=== PATIENT | male | born 1965 | race Caucasian/White ===

== ENCOUNTER → 2016-06-30 | Outpatient (CLI) | payer OTHER | LOC: OD 14:07 | PROVIDERS: ATTEND Physician Assistant | DX: R22.9 Localized swelling, mass and lump, unspecified (principal); M54.2 Cervicalgia | CPT/HCPCS: 71020; 72050 ==

== ENCOUNTER 2016-12-15 14:16 | Emergency (ER) | payer OTHER ==
--- NOTE | 2016-12-15 15:34 | RADIOLOGY REPORT (SQ) ---
EXAM DESCRIPTION: FOOT RIGHT COMPLETE COMPLETED DATE/TIME: 12/15/2016 3:17 pm REASON FOR STUDY: pain COMPARISON: None. NUMBER OF VIEWS: Three views. TECHNIQUE: AP, lateral and oblique radiographic images acquired of the right foot. LIMITATIONS: None. FINDINGS: MINERALIZATION: Normal. BONES: No acute fracture or dislocation. No worrisome bone lesions. Small calcaneal spur at the ins ertion of the plantar aponeurosis. Small bone island in the distal calcaneus. JOINTS: No effusions. SOFT TISSUES: No soft tissue swelling. No foreign body. Mild arterial calcification. OTHER: No other significant finding. IMPRESSION: Small calcaneal spur otherwise negative right foot. TECHNICAL DOCUMENTATION: JOB ID: [id number] [employer]- All Rights Reserved
[2016-12-15] MEDS ORDERED: OXYCODONE-ACETAMINOPHEN 5-325 MG TABLET PO ONE (15:43)
--- NOTE | 2016-12-15 15:47 | ER Document Report ---
HPI - HPI Patient complains to provider of: Foot injury Onset: Other - 5 Days ago Onset/Duration: Persistent Quality of pain: Achy Pain Level: 4 Context: Patient states that he accidentally kicked something while walking in the house 5 days ago and injured his right foot. Patient complains of persistent pain to the plantar surface of the right foot Associated Symptoms: Other - Foot pain Exacerbated by: Standing, Movement, Walking Relieved by: Denies Similar symptoms previously: No Recently seen / treated by doctor: No - ROS ROS below otherwise negative: Yes Systems Reviewed and Negative: Yes All other systems reviewed and negative - CONSTITUTIONAL Constitutional: DENIES: Fever, Chills - GASTROINTESTINAL Gastrointestinal: DENIES: Nausea - REPRODUCTIVE Reproductive: DENIES: : - MUSCULOSKELETAL Musculoskeletal: REPORTS: Extremity pain - DERM Skin Color: Normal Skin Problems: None Past Medical History - General Information source: Patient - Social History Smoking Status: Never Smoker Frequency of alcohol use: None Drug Abuse: None Occupation: none Lives with: Family Family History: CAD Patient has suicidal ideation: No Patient has homicidal ideation: No - Past Medical History Cardiac Medical History: Reports: Hx Heart Attack, Hx Hypercholesterolemia, Hx Hypertension Renal/ Medical History: Denies: Hx Peritoneal Dialysis GI Medical History: Reports: Hx Gastroesophageal Reflux Disease Past Surgical History: Reports: Hx Abdominal Surgery - abominal/groin for blockage, Hx Orthopedic Surgery - bilat knees - Immunizations Immunizations up to date: No Hx Diphtheria, Pertussis, Tetanus Vaccination: Yes Hx Pneumococcal Vaccination: 02/10/15 Vertical Provider Document - CONSTITUTIONAL Agree With Documented VS: Yes Exam Limitations: No Limitations General Appearance: WD/WN, No Apparent Distress - INFECTION CONTROL TRAVEL OUTSIDE OF THE [place] IN LAST 30 DAYS: No - HEENT HEENT: Atraumatic - NECK Neck: Normal Inspection - RESPIRATORY Respiratory: No Respiratory Distress O2 Sat by Pulse Oximetry: 96 - CARDIOVASCULAR Pulses: Normal: Radial - MUSCULOSKELETAL/EXTREMETIES Musculoskeletal/Extremeties: MAEW, Tender - Right foot tenderness to plantar surface of distal right third through fifth metatarsal, no obvious edema, no deformity - NEURO Level of Consciousness: Awake, Alert, Appropriate Motor/Sensory: No Motor Deficit - DERM Integumentary: Warm, Dry, No Rash Course - Vital Signs Vital signs: Temp Pulse Resp BP Pulse Ox 98.4 F 79 18 132/88 H 96 12/15/16 14:23 12/15/16 14:23 12/15/16 14:23 12/15/16 14:23 12/15/16 14:23 - Diagnostic Test Radiology reviewed: Image reviewed, Reports reviewed Procedures - Immobilization Right Foot Pre-Proc Neuro Vasc Exam: Normal Immobilizer type: Willian wrap, Post-op shoe Performed by: PCT Post-Proc Neuro Vasc Exam: Normal Alignment checked and good: Yes Discharge - Discharge Clinical Impression: Right foot sprain Qualifiers: Encounter type: initial encounter Qualified Code(s): S93.601A - Unspecified sprain of right foot, initial encounter Condition: Stable Disposition: HOME, SELF-CARE Instructions: Sprain ([facility]), Oral Narcotic Medication ([facility]), Ice Packs ([facility]), Use of Crutches ([facility]), Post-Op Shoe ([facility]) Additional Instructions: Return immediately for any new or worsening symptoms Followup with your primary care provider, call tomorrow to make a followup appointment Weightbearing as tolerated Follow-up with orthopedic doctor for any continued pain or problems Prescriptions: Oxycodone HCl/Acetaminophen [Percocet 5-325 mg Tablet] 1 tab PO ASDIR PRN #12 tablet PRN Reason: Referrals: JOSE SCHROEDER PA-C [Primary Care Provider] - Follow up as needed [facility] [Provider Group] - Follow up as needed
[2016-12-15 16:14] VITALS: BP 130/82
== END 2016-12-15 16:10 | disposition home or self-care (01) ==
LOC: ER 14:16
DX: S93.601A Unspecified sprain of right foot, initial encounter (principal); W22.8XXA Striking against or struck by other objects, initial encounter
CPT/HCPCS: 99283

== ENCOUNTER 2017-10-16 13:48 | Emergency (ER) | payer MEDICARE, OTHER ==
--- NOTE | 2017-10-16 14:08 | EKG REPORT ---
SEVERITY:- NORMAL ECG - SINUS RHYTHM : Confirmed by: Ramesh Mcneil MD 16-Oct-2017 14:08:03
[2017-10-16] MEDS ORDERED: ASPIRIN 81 MG TABLET, CHEWABLE PO ONE (14:47)
[2017-10-16 14:55] LABS: ABSOLUTE BASOPHILS # (AUTO) 0.1 10^3/uL (0.0-0.2); ABSOLUTE EOSINOPHILS # (AUTO) 0.5 10^3/uL (0.0-0.6); ABSOLUTE LYMPHOCYTES (AUTO) 2.4 10^3/uL (0.5-4.7); ABSOLUTE MONOCYTES (AUTO) 1.2 10^3/uL (0.1-1.4); BASOPHILS % (AUTO) 0.8 % (0-2); EOSINOPHILS % (AUTO) 5.6 % (0-6); HEMATOCRIT 42.2 % (37.9-51.0); HEMOGLOBIN 14.3 g/dL (13.5-17.0); LYMPHOCYTES % (AUTO) 29.8 % (13-45); MEAN CORPUSCULAR HEMOGLOBIN 29.9 pg (27.0-33.4); MEAN CORPUSCULAR HGB CONC 33.9 g/dL (32.0-36.0); MEAN CORPUSCULAR VOLUME 88 fl (80-97); MONOCYTES % (AUTO) 14.8 % (3-13); PLATELET COUNT 242 10^3/uL (150-450); RED BLOOD COUNT 4.78 10^6/uL (4.35-5.55); RED CELL DISTRIBUTION WIDTH 14.3 % (11.5-14.0); TOTAL CELLS COUNTED % (AUTO) 100 %; WHITE BLOOD COUNT 8.1 10^3/uL (4.0-10.5)
[2017-10-16] MEDS ORDERED: METHOCARBAMOL 750 MG TABLET PO ONE (15:02)
[2017-10-16] MEDS ORDERED: KETOROLAC TROMETHAMINE INJ/PF 30 MG/1 ML SDV IV ONE (15:02)
--- NOTE | 2017-10-16 15:02 | ER Document Report ---
ED General - General Chief Complaint: Chest Tightness Stated Complaint: CHEST PAIN Time Seen by Provider: 10/16/17 14:35 Notes: Patient is a 51-year-old male presents emergency department the chief complaint of shoulder and chest pain. Patient states that the shoulder pain for 6 weeks. He patient states now that he feels like he is having pain in his chest describes it as sharp pain that radiates into his neck and along into his chest on the left lateral wall. He states that it is positional with worse with certain movements. He describes his neck is stiff on the left side into his left shoulder. States that he has had an MRI and diagnosed with arthritis of the cervical spine. Is supposed to follow-up with orthopedics regarding this. Patient's past medical history is significant for a stress-induced AK in 2015. Patient states that he had a coronary cath in 2014 with no stents placed due to an absence of blockages significant or requiring stent placement, patient states that he takes a daily aspirin but is not on any blood thinners. Patient states that he also has associated congestive heart failure with ejection fraction of 55%. Patient denies any weight gain, orthopnea, dyspnea. Patient has a history of hypertension, hyperlipidemia, prediabetes on metformin. Patient denies any recent travel, additional hormone intake, recent surgery. Patient is a non-smoker denies any alcohol or drug use. Primary care is with Jose velazquez. Cardiology is with ej TRAVEL OUTSIDE OF THE [place] IN LAST 30 DAYS: No - Related Data Allergies/Adverse Reactions: No Known Allergies Allergy (Verified 12/15/16 14:19) Past Medical History - Social History Smoking Status: Never Smoker Chew tobacco use (# tins/day): No Frequency of alcohol use: None Drug Abuse: None Family History: CAD Patient has suicidal ideation: No Patient has homicidal ideation: No - Past Medical History Cardiac Medical History: Reports: Hx Heart Attack, Hx Hypercholesterolemia, Hx Hypertension Endocrine Medical History: Reports: Hx Diabetes Mellitus Type 2 Renal/ Medical History: Denies: Hx Peritoneal Dialysis GI Medical History: Reports: Hx Gastroesophageal Reflux Disease Past Surgical History: Reports: Hx Abdominal Surgery - abominal/groin for blockage, Hx Orthopedic Surgery - bilat knees - Immunizations Immunizations up to date: No Hx Diphtheria, Pertussis, Tetanus Vaccination: Yes Hx Pneumococcal Vaccination: 02/10/15 Review of Systems - Review of Systems Constitutional: No symptoms reported Cardiovascular: See HPI Respiratory: No symptoms reported Gastrointestinal: No symptoms reported Musculoskeletal: See HPI Neurological/Psychological: No symptoms reported -: Yes All other systems reviewed and negative Physical Exam - Vital signs Vitals: Temp Pulse Resp BP Pulse Ox 98.6 F 69 20 146/92 H 96 10/16/17 14:07 10/16/17 14:07 10/16/17 14:07 10/16/17 14:07 10/16/17 14:07 - Notes Notes: Patient PHYSICAL EXAM GENERAL: Alert, interacts well. HEAD: Normocephalic, atraumatic. EYES: Pupils equal, round, and reactive to light. Extraocular movements intact. ENT: Oral mucosa moist, tongue midline. NECK: Full range of motion. Supple. Trachea midline. LUNGS: Clear to auscultation bilaterally, no wheezes, rales, or rhonchi. No respiratory distress. HEART: Tenderness along the left pectoral muscle and pain reproducible palpation. Regular rate and rhythm. No murmurs, gallops, or rubs. ABDOMEN: Soft, nondistended, nontender. No guarding, rebound, or rigidity.. Bowel sounds present in all 4 quadrants. EXTREMITIES: Tenderness and tension noted in the left trapezius and left shoulder. Worse with range of motion. Pain reproducible palpation. Moves all 4 extremities spontaneously. No edema, radial and dorsalis pedis pulses 2/4 bilaterally. No cyanosis. NEUROLOGICAL: Alert and oriented x4. Normal speech. PSYCH: Normal affect, normal mood. SKIN: Warm, dry, normal turgor. No rashes or lesions noted. Course - Re-evaluation Re-evalutation: 10/16/17 16:13 Patient is a 51-year-old male presents emergency department the chief complaint of shoulder and chest pain. A chest pain care set was ordered For triage protocol. Patient's physical exam is consistent with musculoskeletal cause. With that being said his troponin was at 0.024. This has been at this level in the past. Could be due to underlying congestive heart failure but given patient 's history we will trend for another troponin. EKG without any evidence of ST changes concerning for ischemia. Patient is chest pain free at this time unless re-creates his musculoskeletal discomfort with positioning 10/16/17 18:59 patient's repeat troponin is also negative. Patient's has been chest pain-free in the emergency department with no results noted on monitoring. Patient agreeable with discharge home to follow-up with primary care. Given strict return precautions and stable for discharge home. - Vital Signs Vital signs: Temp Pulse Resp BP Pulse Ox 98.6 F 69 13 126/72 H 97 10/16/17 14:07 10/16/17 14:07 10/16/17 15:01 10/16/17 15:01 10/16/17 15:01 - Laboratory Result Diagrams: 10/16/17 14:30 10/16/17 14:30 Laboratory results interpreted by me: 10/16/17 10/16/17 14:30 14:30 RDW 14.3 H Monocytes % 14.8 H Sodium 149.5 H Chloride 110 H - Diagnostic Test Radiology reviewed: Image reviewed, Reports reviewed - EKG Interpretation by Me EKG shows normal: Sinus rhythm Rate: Normal Rhythm: NSR When compared to previous EKG there are: No significant change Discharge - Discharge Clinical Impression: Chest wall pain Shoulder pain Qualifiers: Chronicity: acute Laterality: left Qualified Code(s): M25.512 - Pain in left shoulder Condition: Good Disposition: HOME, SELF-CARE Instructions: Chest Wall Pain ([facility]), Exercise Program for the Shoulder ([facility]), Neck Injury (Cervical Strain) ([facility]), Warm Packs ([facility]) Prescriptions: Methocarbamol [Robaxin 750 mg Tablet] 750 mg PO ASDIR PRN #40 tablet PRN Reason: Referrals: JOSE VELAZQUEZ PA-C [Primary Care Provider] - Follow up in 3-5 days
--- NOTE | 2017-10-16 15:11 | RADIOLOGY REPORT (SQ) ---
EXAM DESCRIPTION: CHEST SINGLE VIEW COMPLETED DATE/TIME: 10/16/2017 3:04 pm REASON FOR STUDY: chest pain COMPARISON: 06/30/2016 EXAM PARAMETERS: NUMBER OF VIEWS: One view. TECHNIQUE: Single frontal radiographic view of the chest acquired. RADIATION DOSE: NA LIMITATIONS: None. FINDINGS: LUNGS AND PLEURA: No opacities, masses or pneumothorax. No pleural effusion. MEDIASTINUM AND HILAR STRUCTURES: No masses. Contour normal. HEART AND VASCULAR STRUCTURES: Stable heart size. Normal vasculature. BONES: No acute findings. HARDWARE: None in the chest. OTHER: No other significant finding. IMPRESSION: NO ACUTE RADIOGRAPHIC FINDING IN THE CHEST. TECHNICAL DOCUMENTATION: JOB ID: [id number] [employer]- All Rights Reserved Reading location - IP/workstation name: [email or web address]
[2017-10-16 15:28] LABS: ALANINE AMINOTRANSFERASE 71 U/L (21-72); ALBUMIN 4.1 g/dL (3.5-5.0); ALKALINE PHOSPHATASE 84 U/L (38-126); ANION GAP 14 (5-19); ASPARTATE AMINO TRANSFERASE 43 U/L (17-59); BILIRUBIN,DIRECT 0.4 mg/dL (0.0-0.4); BILIRUBIN,TOTAL 0.4 mg/dL (0.2-1.3); BLOOD UREA NITROGEN 19 mg/dL (7-20); CALCIUM 9.5 mg/dL (8.4-10.2); CARBON DIOXIDE 26 mmol/L (22-30); CHLORIDE 110 mmol/L (98-107); CREATINE KINASE 135 U/L (55-170); GLUCOSE 87 mg/dL (75-110); POTASSIUM 4.2 mmol/L (3.6-5.0); SODIUM 149.5 mmol/L (137-145); TOTAL PROTEIN 7.4 g/dL (6.3-8.2)
[2017-10-16 15:38] LABS: TROPONIN I 0.026 ng/mL
[2017-10-16 15:40] LABS: CREATINE KINASE MB 1.09 ng/mL (<4.55)
[2017-10-16 20:27] VITALS: BP 104/63
== END 2017-10-16 20:27 | disposition home or self-care (01) ==
LOC: ER 13:48
DX: R07.89 Other chest pain (principal); I11.0 Hypertensive heart disease with heart failure; I50.9 Heart failure, unspecified; E11.9 Type 2 diabetes mellitus without complications; M47.9 Spondylosis, unspecified; M25.512 Pain in left shoulder; M43.6 Torticollis; I25.2 Old myocardial infarction; Z82.49 Family history of ischemic heart disease and other diseases of the circulatory system
CPT/HCPCS: 93005; 99285; 96374; 36415; 82553; 82550; 85025; 80053; 84484; 83880; 71045; 93010; A9270 ×2; J1885; J3490

== ENCOUNTER 2019-01-31 20:42 | Emergency (ER) | payer MEDICARE, OTHER ==
[2019-01-31] MEDS ORDERED: ASPIRIN 81 MG TABLET, CHEWABLE PO ONE (20:54)
--- NOTE | 2019-01-31 22:12 | RADIOLOGY REPORT (SQ) ---
EXAM DESCRIPTION: CLINICAL HISTORY: 53 years Male, cp COMPARISON: 06/30/2016.. FINDINGS: Cardiomediastinal silhouette is not acutely enlarged. There is minimal prominence of the main pulmonary artery segment which was seen previously. Current study demonstrates minimal prominence of interstitial markings in the lung bases. IMPRESSION: Very minimal prominence of interstitial markings in the lung bases. No overt acute findings.
[2019-01-31 22:31] LABS: ABSOLUTE BASOPHILS # (AUTO) 0.1 10^3/uL (0.0-0.2); ABSOLUTE EOSINOPHILS # (AUTO) 0.6 10^3/uL (0.0-0.6); ABSOLUTE LYMPHOCYTES (AUTO) 2.9 10^3/uL (0.5-4.7); ABSOLUTE NEUT (AUTO) 5.3 10^3/uL (1.7-8.2); EOSINOPHILS % (AUTO) 5.8 % (0-6); HEMATOCRIT 43.2 % (37.9-51.0); HEMOGLOBIN 14.8 g/dL (13.5-17.0); LYMPHOCYTES % (AUTO) 29.3 % (13-45); MEAN CORPUSCULAR HEMOGLOBIN 30.3 pg (27.0-33.4); MEAN CORPUSCULAR HGB CONC 34.3 g/dL (32.0-36.0); MEAN CORPUSCULAR VOLUME 88 fl (80-97); MONOCYTES % (AUTO) 10.5 % (3-13); PLATELET COUNT 275 10^3/uL (150-450); RED BLOOD COUNT 4.89 10^6/uL (4.35-5.55); RED CELL DISTRIBUTION WIDTH 14.1 % (11.5-14.0); SEGMENTED NEUTROPHILS % (AUTO) 53.4 % (42-78); TOTAL CELLS COUNTED % (AUTO) 100 %
[2019-01-31 22:41] LABS: INTERNATIONAL RATION (INR) 0.96; PROTHROMBIN TIME 12.8 SEC (11.4-15.4)
[2019-01-31 22:45] LABS: ALBUMIN 4.2 g/dL (3.5-5.0); ALKALINE PHOSPHATASE 92 U/L (38-126); ANION GAP 11 (5-19); ASPARTATE AMINO TRANSFERASE 24 U/L (17-59); BILIRUBIN,DIRECT 0.2 mg/dL (0.0-0.4); BILIRUBIN,TOTAL 0.4 mg/dL (0.2-1.3); BLOOD UREA NITROGEN 18 mg/dL (7-20); CALCIUM 9.9 mg/dL (8.4-10.2); CARBON DIOXIDE 30 mmol/L (22-30); CHLORIDE 101 mmol/L (98-107); CREATINE KINASE 58 U/L (55-170); GLUCOSE 127 mg/dL (75-110); POTASSIUM 3.8 mmol/L (3.6-5.0); TOTAL PROTEIN 7.5 g/dL (6.3-8.2)
[2019-01-31 22:57] LABS: TROPONIN I < 0.012 ng/mL
[2019-01-31] MEDS ORDERED: ACETAMINOPHEN 325 MG TABLET PO ONE (23:53)
[2019-02-01] MEDS ORDERED: ONDANSETRON HCL INJ/PF 4 MG/2 ML SDV IV ONE (00:03)
[2019-02-01] MEDS ORDERED: IPRATROPIUM/ALBUTEROL 0.5-2.5 MG/3 ML AMPUL NEB ONE (00:03)
[2019-02-01] MEDS ORDERED: MORPHINE SULFATE 10 MG/ML INJ IV ONE (00:03)
--- NOTE | 2019-02-01 00:05 | ER Document Report ---
ED General - General Chief Complaint: Chest Pain Stated Complaint: CHEST PAIN Time Seen by Provider: 01/31/19 23:24 Primary Care Provider: JOSE SCHROEDER PA-C [Primary Care Provider] - Follow up in 3-5 days Mode of Arrival: Ambulatory Information source: Patient, Relative Notes: 53-year-old male with coronary artery disease, hypertension, hyperlipidemia, type 2 diabetes, reflux presents with complaint of chest pain, shortness of breath and headache. Patient states chest pain started 1 day prior to arrival while at rest. Pain is located substernally and described as a constant pressure like pain. Shortness of breath is intermittent, worse with activity and when laying flat. Patient does have a history of JOSE FRANCISCO and is supposed to be using a CPAP machine but states he has not been using it as he should. Patient denies any recent surgery, leg swelling, history of PE, DVT, history of cancer. Patient does report that he had been camping for several weeks but denies any tick bites, bug bites, rashes, fever, chills, nausea, vomiting. TRAVEL OUTSIDE OF THE [place] IN LAST 30 DAYS: No - HPI Onset: Yesterday Onset/Duration: Gradual, Persistent Quality of pain: Pressure Severity: Moderate Pain Level: 2 Associated symptoms: Body/muscle aches, Chest pain, Earache, Headache, Nausea, Shortness of breath. denies: Nonproductive cough, Productive cough, Hurts to breath, Leg swelling, Vomiting, Sweating, Weakness Exacerbated by: Movement, Walking Relieved by: Remaining still Similar symptoms previously: Yes Recently seen / treated by doctor: No - Related Data Allergies/Adverse Reactions: No Known Allergies Allergy (Verified 12/15/16 14:19) Past Medical History - General Information source: Patient - Social History Smoking Status: Never Smoker Frequency of alcohol use: Rare Drug Abuse: None Lives with: Family Family History: CAD Patient has suicidal ideation: No Patient has homicidal ideation: No - Past Medical History Cardiac Medical History: Reports: Hx Heart Attack, Hx Hypercholesterolemia, Hx Hypertension Endocrine Medical History: Reports: Hx Diabetes Mellitus Type 2 Renal/ Medical History: Denies: Hx Peritoneal Dialysis GI Medical History: Reports: Hx Gastroesophageal Reflux Disease Past Surgical History: Reports: Hx Abdominal Surgery - abominal/groin for blockage, Hx Orthopedic Surgery - bilat knees - Immunizations Immunizations up to date: No Hx Diphtheria, Pertussis, Tetanus Vaccination: Yes Hx Pneumococcal Vaccination: 02/10/15 Review of Systems - Review of Systems Constitutional: Malaise EENT: Eye pain. denies: Throat pain, Difficulty swallowing Cardiovascular: Chest pain, Dyspnea, Dizziness. denies: Palpitations, Edema Respiratory: Short of breath. denies: Cough, Wheezing Gastrointestinal: Nausea. denies: Abdominal pain, Vomiting, Poor appetite, Poor fluid intake Genitourinary: denies: Dysuria, Flank pain Male Genitourinary: No symptoms reported Musculoskeletal: denies: Back pain, Muscle stiffness, Neck pain Skin: denies: Lesions, Rash Hematologic/Lymphatic: denies: Easy bleeding, Easy bruising Neurological/Psychological: Headaches -: Yes All other systems reviewed and negative Physical Exam - Vital signs Vitals: Temp Pulse Resp BP Pulse Ox 97.6 F 91 20 203/109 H 98 01/31/19 21:01 01/31/19 21:01 01/31/19 21:01 01/31/19 21:01 01/31/19 21:01 - Notes Notes: PHYSICAL EXAMINATION: GENERAL: Well-appearing, well-nourished and in no acute distress. HEAD: Atraumatic, normocephalic. EYES: Pupils equal round and reactive to light, extraocular movements intact, sclera anicteric, conjunctiva are normal. ENT: Nares patent, oropharynx clear without exudates. Moist mucous membranes. NECK: Normal range of motion, supple without lymphadenopathy LUNGS: Breath sounds clear to auscultation bilaterally and equal. No wheezes rales or rhonchi. HEART: Regular rate and rhythm without murmurs ABDOMEN: Soft, nontender, nondistended abdomen. No guarding, no rebound. No masses appreciated. Musculoskeletal: Normal range of motion, no pitting or edema. No cyanosis. No swelling of the lower extremities, calves nontender, not erythema. NEUROLOGICAL: Cranial nerves grossly intact. Normal speech, normal gait. Normal sensory, motor exams PSYCH: Normal mood, normal affect. SKIN: Warm, Dry, normal turgor, no rashes or lesions noted. Course - Re-evaluation Re-evalutation: 02/01/19 00:30 Laboratory 01/31/19 01/31/19 01/31/19 22:01 22: 22:01 WBC 10.0 RBC 4.89 Hgb 14.8 Hct 43.2 MCV 88 MCH 30.3 MCHC 34.3 RDW 14.1 H Plt Count 275 Lymph % (Auto) 29.3 Izard % (Auto) 10.5 Eos % (Auto) 5.8 Baso % (Auto) 1.0 Absolute Neuts (auto) 5.3 Absolute Lymphs (auto) 2.9 Absolute Monos (auto) 1.0 Absolute Eos (auto) 0.6 Absolute Basos (auto) 0.1 Seg Neutrophils % 53.4 PT 12.8 INR 0.96 Sodium 141.5 Potassium 3.8 Chloride 101 Carbon Dioxide 30 Anion Gap 11 BUN 18 Creatinine 0.88 Est GFR ( Amer) > 60 Est GFR (MDRD) Non-Af > 60 Glucose 127 H Calcium 9.9 Total Bilirubin 0.4 Direct Bilirubin 0.2 Neonat Total Bilirubin Not Reportable Neonat Direct Bilirubin Not Reportable Neonat Indirect Bili Not Reportable AST 24 ALT 33 Alkaline Phosphatase 92 Creatine Kinase 58 CK-MB (CK-2) Troponin I Total Protein 7.5 Albumin 4.2 01/31/19 22:01 WBC RBC Hgb Hct MCV MCH MCHC RDW Plt Count Lymph % (Auto) Izard % (Auto) Eos % (Auto) Baso % (Auto) Absolute Neuts (auto) Absolute Lymphs (auto) Absolute Monos (auto) Absolute Eos (auto) Absolute Basos (auto) Seg Neutrophils % PT INR Sodium Potassium Chloride Carbon Dioxide Anion Gap BUN Creatinine Est GFR ( Amer) Est GFR (MDRD) Non-Af Glucose Calcium Total Bilirubin Direct Bilirubin Neonat Total Bilirubin Neonat Direct Bilirubin Neonat Indirect Bili AST ALT Alkaline Phosphatase Creatine Kinase CK-MB (CK-2) 0.30 Troponin I < 0.012 Total Protein Albumin Chest X-Ray 01/31/19 00:00 IMPRESSION: Very minimal prominence of interstitial markings in the lung bases. No overt acute findings. Temp Pulse Resp BP Pulse Ox 97.6 F 91 21 H 196/112 H 97 01/31/19 21:01 01/31/19 21:01 01/31/19 22:01 01/31/19 22:00 01/31/19 22:01 Laboratory 01/31/19 01/31/19 01/31/19 22:01 22:01 22:01 WBC 10.0 RBC 4.89 Hgb 14.8 Hct 43.2 MCV 88 MCH 30.3 MCHC 34.3 RDW 14.1 H Plt Count 275 Lymph % (Auto) 29.3 Izard % (Auto) 10.5 Eos % (Auto) 5.8 Baso % (Auto) 1.0 Absolute Neuts (auto) 5.3 Absolute Lymphs (auto) 2.9 Absolute Monos (auto) 1.0 Absolute Eos (auto) 0.6 Absolute Basos (auto) 0.1 Seg Neutrophils % 53.4 PT 12.8 INR 0.96 D-Dimer Sodium 141.5 Potassium 3.8 Chloride 101 Carbon Dioxide 30 Anion Gap 11 BUN 18 Creatinine 0.88 Est GFR ( Amer) > 60 Est GFR (MDRD) Non-Af > 60 Glucose 127 H Calcium 9.9 Total Bilirubin 0.4 Direct Bilirubin 0.2 Neonat Total Bilirubin Not Reportable Neonat Direct Bilirubin Not Reportable Neonat Indirect Bili Not Reportable AST 24 ALT 33 Alkaline Phosphatase 92 Creatine Kinase 58 CK-MB (CK-2) Troponin I NT-Pro-B Natriuret Pep Total Protein 7.5 Albumin 4.2 01/31/19 01/31/19 02/01/19 22:01 22:01 02:03 WBC RBC Hgb Hct MCV MCH MCHC RDW Plt Count Lymph % (Auto) Izard % (Auto) Eos % (Auto) Baso % (Auto) Absolute Neuts (auto) Absolute Lymphs (auto) Absolute Monos (auto) Absolute Eos (auto) Absolute Basos (auto) Seg Neutrophils % PT INR D-Dimer 0.38 Sodium Potassium Chloride Carbon Dioxide Anion Gap BUN Creatinine Est GFR ( Amer) Est GFR (MDRD) Non-Af Glucose Calcium Total Bilirubin Direct Bilirubin Neonat Total Bilirubin Neonat Direct Bilirubin Neonat Indirect Bili AST ALT Alkaline Phosphatase Creatine Kinase CK-MB (CK-2) 0.30 Troponin I < 0.012 < 0.012 NT-Pro-B Natriuret Pep 116 Total Protein Albumin Chest X-Ray 01/31/19 00:00 IMPRESSION: Very minimal prominence of interstitial markings in the lung bases. No overt acute findings. Head CT 02/01/19 00:02 IMPRESSION: 1. There is no evidence of acute intracranial pathology or significant change since the prior study. 2. Patchy subcortical and periventricular low attenuation most likely due to chronic microangiopathy. 3. Right maxillary sinus mucus retention cyst. 53-year-old male presents with complaint of chest pain, shortness of breath and headache that started yesterday. Reports being out camping over the last few weeks but denies any bug bites, rashes. Vital signs reviewed and patient is markedly hypertensive but has not taken his evening dose of blood pressure med ications yet. Patient does not appear toxic or dehydrated. He is in no acute distress. EKG shows the patient to be in sinus rhythm with a slightly prolonged QTC but no evidence of ST elevation, depression. CBC is without leukocytosis or anemia. CMP shows no electrolyte abnormality. Cardiac enzymes including delta troponin are negative. Day d-dimer is also within normal limits. Chest x-ray and CT of the head are unremarkable. Patient did receive aspirin, Tylenol, morphine, Zofran. On reevaluation he is resting comfortably, reports resolution of his headache and chest pain. Patient advised that although his work-up here is negative he should be seen by his primary care physician due to his comorbidities. Patient given his home blood pressure medication of carvedilol and hydroch lorothiazide. 02/01/19 04:28 Patient reports resolution of his chest pain, shortness of breath. Presentation of chest pain in an otherwise well appearing patient. Low clinical suspicion for ACS given clinical history, exam, EKG without ST elevations or depressions, and negative initial troponin. HEART score less than or equal to 3. PE also seems unlikely given clinical history, absence of tachycardia or dyspnea. Patient has a negative d-dimer. CXR without evidence of pneumothorax or pneumonia. No widened mediastinum. Aortic dissection also seems unlikely given history, symmetric pulses, CXR, and vitals. HEART Score: History-0 ECG-0 Age-1 Risk Factors-2 Troponin-0 Total: 3 Chest pain in a patient without evidence of cardiac or other serious etiology on workup today. I discussed with patient that, based on their age, risk factors and emergency department testing today, the likelihood that their symptoms are related to a heart attack is very low (estimated risk of heart attack or over the next 30 days of less than 1%). The patient demonstrates decision making capacity and has verbalized an understanding of these risks to me. Based on this, the patient has chosen to follow-up as an outpatient. Usual chest pain return precautions reviewed. The patient states understanding and agreement with this plan. 02/01/19 15:59 Patient was evaluated and treated as appropriate for the patient's presenting symptoms and complaint, with consideration of any critical or life threatening conditions that may be associated with their obtained history and exam as noted above. All results were discussed with patient and who is at the bedside. Patient provided the opportunity to ask questions, and express concerns. Patient was educated on treatments based on their presumed diagnosis as noted above. At this time we will discharge the patient with return precautions and follow-up recommendations. Verbal discharge instructions given a the bedside. Medication warnings reviewed. Patient is in agreement with this plan and has verbalized understanding of return precautions. After careful consideration I feel that that patient can be safely discharged from the emergency department, they were advised to followup with a primary care physician in 2-3 days. Dictation on this chart was performed using voice recognition software and may result in unintended grammatical, spelling, syntax or errors. - Vital Signs Vital signs: Temp Pulse Resp BP Pulse Ox 97.7 F 91 17 156/104 H 94 02/01/19 05:00 01/31/19 21:01 02/01/19 05:00 02/01/19 05:00 02/01/19 05:00 - Laboratory Result Diagrams: 01/31/19 22:01 01/31/19 22:01 Laboratory results interpreted by me: 01/31/19 01/31/19 22:01 22:01 RDW 14.1 H Glucose 127 H - Diagnostic Test Radiology reviewed: Image reviewed, Reports reviewed Discharge - Discharge Clinical Impression: Uncontrolled hypertension Chest pain Qualifiers: Chest pain type: unspecified Qualified Code(s): R07.9 - Chest pain, unspecified Dyspnea Qualifiers: Dyspnea type: unspecified Qualified Code(s): R06.00 - Dyspnea, unspecified Condition: Good Disposition: HOME, SELF-CARE Instructions: Chest Pain of Unclear Cause ([facility]), Dyspnea, Nonspecific ([facility]) Additional Instructions: You were seen today for chest pain. The exact cause of your pain is unclear. However, based on your cardiac enzyme testing, chest x-ray, and EKG it does not appear that it is from an immediately life-threatening cause at this time. Although your testing here is normal is critical that you follow-up with your primary care physician for continued evaluation of this chest pain and possible stress testing. I recommended you see your physician within the next 24-48 hours to be evaluated for consideration of a stress test. Please return to em ergency department immediately if you have worsening of your chest pain, shortness of breath, vomiting, become unable to exert yourself due to pain or difficulty breathing, you pass out, or have any pain that radiates into your arms, jaw, or back. Please also return if you have any additional symptoms that are concerning to you. Forms: Elevated Blood Pressure Referrals: JOSE SCHROEDER PA-C [Primary Care Provider] - Follow up in 3-5 days
[2019-02-01] MEDS ORDERED: CARVEDILOL 12.5 MG TABLET PO ONE (00:23)
[2019-02-01] MEDS ORDERED: HYDROCHLOROTHIAZIDE 25 MG TABLET PO ONE (00:23)
[2019-02-01] MEDS ORDERED: CARVEDILOL 6.25 MG TABLET ONE ×2 (00:33→00:39)
--- NOTE | 2019-02-01 00:55 | RADIOLOGY REPORT (SQ) ---
EXAM: CT head without IV contrast CLINICAL DATA: Headache, elevated blood pressure TECHNICAL DATA: Multiple axial CT images of the brain were performed followed by sagittal and coronal reconstructed images. The CT study is performed according to ALARA (as low as reasonably achievable) or ALARA/IMAGE GENTLY, with automatic adjustment of mA and/or kV according to patient size. Performed on: 02/01/2019 at 12:38 AM Comparisons: 10/13/2015. FINDINGS: There is no evidence of mass, acute mass effect or midline shift. There are no acute extra-axial fluid collections. There is no evidence of acute intracranial hemorrhage. The cerebral sulci and ventricles are normal in size and configuration. There are scattered areas of decreased attenuation within the subcortical and periventricular white matter most likely due to mild chronic microangiopathy. There is trace mucosal thickening of the paranasal sinuses. There is a right maxillary sinus mucus retention cyst. The mastoid air cells are clear. The orbital contents are grossly unremarkable. No acute osseous abnormalities are identified. No focal soft tissue abnormalities are identified. IMPRESSION: 1. There is no evidence of acute intracranial pathology or significant change since the prior study. 2. Patchy subcortical and periventricular low attenuation most likely due to chronic microangiopathy. 3. Right maxillary sinus mucus retention cyst.
[2019-02-01 02:43] LABS: NT PRO BNP 116 pg/mL (5-900)
[2019-02-01 02:48] LABS: TROPONIN I < 0.012 ng/mL
[2019-02-01 05:25] VITALS: BP 156/104
--- NOTE | 2019-02-01 12:24 | EKG REPORT ---
SEVERITY:- ABNORMAL ECG - SINUS RHYTHM PROLONGED QT INTERVAL : Confirmed by: Quinaa Song MD 01-Feb-2019 12:23:16
[2019-02-04 16:43] LABS: LYME DISEASE IGM AB <0.80 index (0.00-0.79)
== END 2019-02-01 05:25 | disposition home or self-care (01) ==
LOC: ER 20:42
DX: I10 Essential (primary) hypertension (principal); R06.00 Dyspnea, unspecified; R07.9 Chest pain, unspecified; M79.10 Myalgia, unspecified site; R51 Headache; R11.0 Nausea; R06.02 Shortness of breath; I25.2 Old myocardial infarction; E78.00 Pure hypercholesterolemia, unspecified; E11.9 Type 2 diabetes mellitus without complications
CPT/HCPCS: 93005; 94640; 99285; 96374; 96375; 36415; 82553; 82550; 85025; 85610; 80053; 84484; 85379; 86618 ×2; 86617 ×2; 83880; 71046; 70450; 93010; A9270 ×4; J2270; J2405; J7620

== ENCOUNTER 2019-11-16 14:36 | Inpatient (IN) | payer MEDICARE, OTHER ==
--- NOTE | 2019-11-16 14:55 | ER Document Report ---
ED Medical Screen (RME) - General Chief Complaint: Syncope Stated Complaint: SYNCOPE Time Seen by Provider: 11/16/19 14:52 Primary Care Provider: JOSE SCHROEDER PA-C [Primary Care Provider] - Follow up as needed Notes: This 54-year-old male presented to the emergency room today sitting had a syncopal episode while working on his car and struck the rear of his eyes but he does take blood thinners does have an extensive cardiac history does not know why he passed out. I greeted and performed a rapid initial assessment of this patient. Comprehensive ED assessment and evaluation of the patient, analysis of test resu lts and completion of the medical decision making process will be conducted by additional ED providers. TRAVEL OUTSIDE OF THE [place] IN LAST 30 DAYS: No - Related Data Allergies/Adverse Reactions: No Known Allergies Allergy (Verified 12/15/16 14:19) Past Medical History - Past Medical History Cardiac Medical History: Reports: Hx Heart Attack, Hx Hypercholesterolemia, Hx Hypertension Endocrine Medical History: Reports: Hx Diabetes Mellitus Type 2 Renal/ Medical History: Denies: Hx Peritoneal Dialysis GI Medical History: Reports: Hx Gastroesophageal Reflux Disease Past Surgical History: Reports: Hx Abdominal Surgery - abominal/groin for blockage, Hx Orthopedic Surgery - bilat knees - Immunizations Immunizations up to date: No Hx Diphtheria, Pertussis, Tetanus Vaccination: Yes Physical Exam - Vital signs Vitals: Temp Pulse Resp BP Pulse Ox 97.7 F 81 16 174/111 H 96 11/16/19 14:40 11/16/19 14:40 11/16/19 14:40 11/16/19 14:40 11/16/19 14:40 Course - Vital Signs Vital signs: Temp Pulse Resp BP Pulse Ox 97.7 F 81 16 174/111 H 96 11/16/19 14:40 11/16/19 14:40 11/16/19 14:40 11/16/19 14:40 11/16/19 14:40 Doctor's Discharge - Discharge Referrals: JOSE SCHROEDER PA-C [Primary Care Provider] - Follow up as needed
[2019-11-16 15:38] LABS: ABSOLUTE BASOPHILS # (AUTO) 0.1 10^3/uL (0.0-0.2); ABSOLUTE EOSINOPHILS # (AUTO) 0.3 10^3/uL (0.0-0.6); ABSOLUTE LYMPHOCYTES (AUTO) 2.7 10^3/uL (0.5-4.7); ABSOLUTE MONOCYTES (AUTO) 1.1 10^3/uL (0.1-1.4); ABSOLUTE NEUT (AUTO) 5.3 10^3/uL (1.7-8.2); BASOPHILS % (AUTO) 0.9 % (0-2); EOSINOPHILS % (AUTO) 3.4 % (0-6); HEMATOCRIT 44.8 % (37.9-51.0); HEMOGLOBIN 15.7 g/dL (13.5-17.0); LYMPHOCYTES % (AUTO) 28.1 % (13-45); MEAN CORPUSCULAR HEMOGLOBIN 30.5 pg (27.0-33.4); MEAN CORPUSCULAR HGB CONC 35.2 g/dL (32.0-36.0); MEAN CORPUSCULAR VOLUME 87 fl (80-97); MONOCYTES % (AUTO) 11.3 % (3-13); PLATELET COUNT 268 10^3/uL (150-450); RED BLOOD COUNT 5.16 10^6/uL (4.35-5.55); RED CELL DISTRIBUTION WIDTH 13.9 % (11.5-14.0); SEGMENTED NEUTROPHILS % (AUTO) 56.3 % (42-78); TOTAL CELLS COUNTED % (AUTO) 100 %; WHITE BLOOD COUNT 9.5 10^3/uL (4.0-10.5)
[2019-11-16 15:41] LABS: APPEARANCE,URINE CLEAR; BILIRUBIN,URINE NEGATIVE (NEGATIVE); COLOR,URINE YELLOW; GLUCOSE, URINE NEGATIVE (NEGATIVE); KETONES,URINE NEGATIVE (NEGATIVE); LEUKOCYTE ESTERASE,URINE NEGATIVE (NEGATIVE); NITRITE,URINE NEGATIVE (NEGATIVE); PROTEIN,URINE 30 mg/dL (NEGATIVE); UROBILINOGEN,URINE NEGATIVE mg/dL (<2.0)
--- NOTE | 2019-11-16 15:51 | RADIOLOGY REPORT (SQ) ---
EXAM DESCRIPTION: CT HEAD WITHOUT IMAGES COMPLETED DATE/TIME: 11/16/2019 3:32 pm REASON FOR STUDY: loc COMPARISON: None. TECHNIQUE: Axial images acquired through the brain without intravenous contrast. Images reviewed wi th bone, brain and subdural windows. Additional sagittal and coronal reconstructions were generated. Images stored on PACS. All CT scanners at this facility use dose modulation, iterative reconstruction, and/or weight based d osing when appropriate to reduce radiation dose to as low as reasonably achievable (ALARA). [facility]: Dose Right [facility]: CareDose [facility]: Dose Right [facility]: Teradose 4D [facility]: Occipital RADIATION DOSE: CT Rad equipment meets quality standard of care and radiation dose reduction techniq ues were employed. CTDIvol: 53.2 mGy. DLP: 1230 mGy-cm. mGy. LIMITATIONS: None. FINDINGS: VENTRICLES: Normal size and contour. CEREBRUM: No masses. No hemorrhage. No midline shift. No evidence for acute infarction. Normal gra y/white matter differentiation. No areas of low density in the white matter. CEREBELLUM: No masses. No hemorrhage. No alteration of density. No evidence for acute infarction. EXTRAAXIAL SPACES: No fluid collections. No masses. ORBITS AND GLOBE: No intra- or extraconal masses. Normal contour of globe without masses. CALVARIUM: No fracture. PARANASAL SINUSES: No fluid or mucosal thickening. SOFT TISSUES: No mass or hematoma. OTHER: No other significant finding. IMPRESSION: NORMAL BRAIN CT WITHOUT CONTRAST. EVIDENCE OF ACUTE STROKE: NO. COMMENT: Quality ID # [id number]: Final reports with documentation of one or more dose reduction techniques (e.g., Automated exposure control, adjustment of the mA and/or kV according to patient size, use of iterative reconstruction technique) TECHNICAL DOCUMENTATION: JOB ID: [id number] [employer]- All Rights Reserved Reading location - IP/workstation name: [email or web address]
[2019-11-16 15:53] LABS: ALBUMIN 4.6 g/dL (3.5-5.0); ALKALINE PHOSPHATASE 100 U/L (38-126); ANION GAP 9 (5-19); ASPARTATE AMINO TRANSFERASE 29 U/L (17-59); BILIRUBIN,TOTAL 0.7 mg/dL (0.2-1.3); BLOOD UREA NITROGEN 15 mg/dL (7-20); CALCIUM 9.7 mg/dL (8.4-10.2); CARBON DIOXIDE 26 mmol/L (22-30); CHLORIDE 105 mmol/L (98-107); GLUCOSE 98 mg/dL (75-110); POTASSIUM 4.2 mmol/L (3.6-5.0); TOTAL PROTEIN 8.2 g/dL (6.3-8.2)
--- NOTE | 2019-11-16 16:28 | RADIOLOGY REPORT (SQ) ---
EXAM DESCRIPTION: CHEST SINGLE VIEW IMAGES COMPLETED DATE/TIME: 11/16/2019 4:16 pm REASON FOR STUDY: pain sp fall COMPARISON: Chest radiographs 01/31/2019 EXAM PARAMETERS: NUMBER OF VIEWS: One view. TECHNIQUE: Single frontal radiographic view of the chest acquired. RADIATION DOSE: NA LIMITATIONS: None. FINDINGS: LUNGS AND PLEURA: No opacities, masses or pneumothorax. No pleural effusion. MEDIASTINUM AND HILAR STRUCTURES: Unchanged contours with mild tortuosity of the thoracic aorta. HEART AND VASCULAR STRUCTURES: Heart normal in size. Normal vasculature. BONES: No identifiable displaced rib fracture. HARDWARE: None in the chest. OTHER: No other significant finding. IMPRESSION: No acute pulmonary findings. No identifiable displaced rib fracture. TECHNICAL DOCUMENTATION: JOB ID: [id number] 2010 [email or web address]- All Rights Reserved Reading location - IP/workstation name: [email or web address]
[2019-11-16] MEDS ORDERED: HYDRALAZINE HCL INJ/PF 20 MG/1 ML SDV IV ONE (17:24)
--- NOTE | 2019-11-16 17:32 | ER Document Report ---
ED Syncope and Near Syncope - General Chief Complaint: Syncope Stated Complaint: SYNCOPE Time Seen by Provider: 11/16/19 14:52 Primary Care Provider: JOSE SCHROEDER PA-C [Primary Care Provider] - Follow up as needed Notes: CHIEF COMPLAINT: Syncope HPI: 54-year-old male with history of cardiomyopathy, myocardial infarction, hypertension, hypercholesteremia presenting for evaluation of a syncopal episode today. Patient states he had been working on his car. Patient states he was down on his knees just cleaning up tools when he became suddenly very dizzy and fell backwards and passed out. Patient believes he was unconscious for approximately 15 minutes. States that the dog coming over and licking his face woke him up. No chest pain no shortness of breath. Does complain of a headache. Patient reports no prior history of syncopal episodes. Patient states that he does have some issues with his blood pressure, does not always consistently take his medications did miss his dose of medicine last night but did take it this morning. Patient states he follows with Dr. Gonzalez cardiology. Patient states that when he had his myocardial infarction several years ago he was treated at [facility] and did not receive a stent. He is not on blood thinners. ROS: See HPI - all other systems were reviewed and are otherwise negative Constitutional: no fever Eyes: no drainage, no blurred vision ENT: no runny nose, no sore throat Cardiovascular: no chest pain Resp: no SOB, no cough GI: no vomiting, no diarrhea, no abdominal pain : no dysuria Integumentary: no rash Allergy: no hives Musculoskeletal: no extremity pain or swelling Neurological: no numbness/tingling, no weakness, positive syncope, positive headache MEDICATIONS: I agree with the patient medications as charted by the RN. ALLERGIES: I agree with the allergies as charted by the RN. PAST MEDICAL HISTORY/PAST SURGICAL HISTORY: Reviewed and agree as charted by RN. SOCIAL HISTORY: Reviewed and agree as charted by RN. FAMILY HISTORY: No significant familial comorbid conditions directly related to patient complaint EXAM: Reviewed vital signs as charted by RN. CONSTITUTIONAL: Alert and oriented and responds appropriately to questions. Well-appearing; well-nourished HEAD: Normocephalic; atraumatic EYES: PERRL; Conjunctivae clear, sclerae non-icteric ENT: normal nose; no rhinorrhea; moist mucous membranes; pharynx without lesions noted, no uvula edema or deviation, no tonsillar hypertrophy, phonation normal NECK: Supple without meningismus; non-tender; no cervical lymphadenopathy, no masses CARD: RRR; no murmurs, no clicks, no rubs, no gallops; symmetric distal pulses RESP: Normal chest excursion without splinting or tachypnea; breath sounds clear and equal bilaterally; no wheezes, no rhonchi, no rales, pulse oximetry 97% on room air not hypoxic ABD/GI: Obese, normal bowel sounds; non-distended; soft, non-tender, no rebound, no guarding; no palpable organomegaly or masses. BACK: The back appears normal and is non-tender to palpation, there is no CVA tenderness EXT: Normal ROM in all joints; non-tender to palpation; no cyanosis, no effusions, no edema SKIN: Normal color for age and race; warm; dry; good turgor; no acute lesions noted NEURO: Moves all extremities equally; Motor and sensory function intact PSYCH: The patient's mood and manner are appropriate. Grooming and personal hygiene are appropriate. MDM: 54-year-old male with hypertensive urgency, syncopal episode. Patient is moderately hypertensive here. Manual pressure is 202/108. Will give a low dose of hydralazine. Discussed with Dr. Mao the hospitalist as patient has not had prior syncope, does have hypertensive urgency regarding admission he will come see the patient. EKG normal sinus rhythm with heart rate 84 without other significant ectopy. Chest x-ray and head CT ordered in triage process negative for acute findings. Patient's lab work does not have acute findings other than a troponin of 0.013. TRAVEL OUTSIDE OF THE [place] IN LAST 30 DAYS: No - Related Data Allergies/Adverse Reactions: No Known Allergies Allergy (Verified 11/16/19 17:00) Past Medical History - Social History Smoking Status: Never Smoker Frequency of alcohol use: None Drug Abuse: None Family History: CAD Patient has homicidal ideation: No - Past Medical History Cardiac Medical History: Reports: Hx Heart Attack, Hx Hypercholesterolemia, Hx Hypertension Endocrine Medical History: Reports: Hx Diabetes Mellitus Type 2 Renal/ Medical History: Denies: Hx Peritoneal Dialysis GI Medical History: Reports: Hx Gastroesophageal Reflux Disease Past Surgical History: Reports: Hx Abdominal Surgery - abominal/groin for blockage, Hx Cardiac Catheterization, Hx Orthopedic Surgery - bilat knees - Immunizations Immunizations up to date: No Hx Diphtheria, Pertussis, Tetanus Vaccination: Yes Hx Pneumococcal Vaccination: 02/10/15 Physical Exam - Vital signs Vitals: Temp Pulse Resp BP Pulse Ox 97.7 F 81 16 174/111 H 96 11/16/19 14:40 11/16/19 14:40 11/16/19 14:40 11/16/19 14:40 11/16/19 14:40 Course - Re-evaluation Re-evalutation: 11/16/19 18:22 Patient has been evaluated by Dr. Mao. Still with hypertensive urgency blood pressure has gone up after hydralazine. He has ordered labetalol request to be called with new blood pressure after labetalol - Vital Signs Vital signs: Temp Pulse Resp BP Pulse Ox 97.7 F 81 16 174/111 H 96 11/16/19 14:50 11/16/19 14:40 11/16/19 14:40 11/16/19 14:40 11/16/19 14:40 - Laboratory Result Diagrams: 11/16/19 15:20 11/16/19 15:20 Laboratory results interpreted by me: 11/16/19 15:20 Urine Protein 30 H Urine Ascorbic Acid 40 H Discharge - Discharge Clinical Impression: Hypertensive urgency, Syncope and collapse Condition: Fair Disposition: ADMITTED INPATIENT Admitting Provider: Mayco (Hospitalist) Unit Admitted: IMCU Referrals: JOSE SCHROEDER PA-C [Primary Care Provider] - Follow up as needed
[2019-11-16] MEDS ORDERED: LABETALOL HCL INJ 20 MG/4 ML DISP.SYRIN IV ONE (18:30)
[2019-11-16] MEDS ORDERED: LABETALOL HCL INJ 20 MG/4 ML DISP.SYRIN IV PRN (18:38)
[2019-11-16] MEDS ORDERED: LORAZEPAM INJ 2 MG/1 ML VIAL IV ONE (18:53)
[2019-11-16] MEDS ORDERED: ASPIRIN 325 MG TABLET PO ONE (18:54)
--- NOTE | 2019-11-16 19:14 | PDOC H&P ---
History of Present Illness Admission Date/PCP: JOSE SCHROEDER PA-C History of Present Illness: ERNESTINA ROMO is a 54 year old male with a history of hypertension, hyperlipidemia, cardiomyopathy with reduced ejection fraction, and "borderline diabetes" who presents today after an episode that happened to him while he was at home. He was at home working on his cars air-conditioner, got up from a kneeling position and walked into his garage to get some water, came back and then knelt down to tack picker the tolls from the floor board of the passenger side of the car, and while he had knelt down to do that he says he passed out. He fell backwards and his dog was licking him in the face and he still had the tools in his hand. He called his daughter and she came over to see him. He was brought into the emergency department where his labs and EKG are normal, but he is got substantially elevated blood pressure. He said he does not know if he hit his head, but he said he is not "felt right" since he passed out. His head CT was unremarkable. He got a dose of hydralazine in the ER and his blood pressure continued to go up. Past Medical History Cardiac Medical History: Reports: Myocardial Infarction, Hyperlipidema, Hypertension Endocrine Medical History: Reports: Diabetes Mellitus Type 2 GI Medical History: Reports: Gastroesophageal Reflux Disease Past Surgical History Past Surgical History: Reports: Cardiac Catheterization, Orthopedic Surgery - bilat knees Social History Smoking Status: Never Smoker Frequency of Alcohol Use: Rare Hx Recreational Drug Use: No Drugs: None Hx Prescription Drug Abuse: No Family History Family History: CAD, DM, Hyperlipidemia, Hypertension, Other - CAD Parental Family History Reviewed: Yes Children Family History Reviewed: Yes Sibling(s) Family History Reviewed.: Yes Medication/Allergy Home Medications: Omeprazole [Prilosec] 40 mg PO DAILY 06/20/13 Aspirin [Ecotrin] 81 mg PO DAILY #1 pkg 03/06/14 Amlodipine Besylate [Norvasc 10 mg Tablet] 1 tab PO DAILY 10/12/15 Hydrochlorothiazide 25 mg PO DAILY 10/12/15 Losartan Potassium 1 tab PO DAILY 10/12/15 Pravastatin Sodium [Pravachol] 1 tab PO QHS 10/12/15 Alprazolam [Xanax] 1 mg PO Q6HP PRN 10/13/15 Oxycodone HCl 1 - 2 mg PO Q6HP PRN 10/13/15 Prazosin HCl 2 cap PO DAILY 10/13/15 Temazepam 30 mg PO QHS 10/13/15 Carvedilol [Coreg 12.5 mg Tablet] 12.5 mg PO Q12 #60 tablet 10/14/15 Levofloxacin [Levaquin 750 mg Tablet] 750 mg PO DAILY #10 tablet 03/23/16 Oxycodone HCl/Acetaminophen [Percocet 5-325 mg Tablet] 1 tab PO ASDIR PRN #12 tablet 12/15/16 Methocarbamol [Robaxin 750 mg Tablet] 750 mg PO ASDIR PRN #40 tablet 10/16/17 Allergies/Adverse Reactions: No Known Allergies Allergy (Verified 11/16/19 17:00) Review of Systems All systems: reviewed and no additional remarkable complaints except as stated - All systems were reviewed and were negative except as noted in the HPI Physical Exam Vital Signs: Temp Pulse Resp BP Pulse Ox 97.7 F 81 14 228/132 H 100 11/16/19 14:50 11/16/19 14:40 11/16/19 18:04 11/16/19 18:04 11/16/19 18:04 Intake & Output 11/15/19 11/16/19 11/17/19 06:59 06:59 06:59 Weight 120.202 kg General appearance: PRESENT: no acute distress, cooperative, morbidly obese Head exam: PRESENT: atraumatic, normocephalic Eye exam: PRESENT: conjunctival injection, EOMI, PERRLA. ABSENT: nystagmus, scleral icterus Ear exam: PRESENT: normal external ear exam Mouth exam: PRESENT: moist, neck supple Throat exam: ABSENT: post pharyngeal erythema Neck exam: PRESENT: full ROM. ABSENT: carotid bruit, JVD, lymphadenopathy, meningismus, tenderness, thyromegaly Respiratory exam: PRESENT: clear to auscultation jabari, symmetrical, unlabored. ABSENT: accessory muscle use, chest wall tenderness, prolonged expiratory phas, rhonchi, tachypnea, wheezes Cardiovascular exam: PRESENT: RRR, +S1, +S2 Pulses: PRESENT: normal carotid pulses Vascular exam: PRESENT: normal capillary refill GI/Abdominal exam: PRESENT: normal bowel sounds, soft. ABSENT: distended, guarding, rebound, tenderness Extremities exam: PRESENT: pedal edema. ABSENT: clubbing Musculoskeletal exam: PRESENT: normal inspection Neurological exam: PRESENT: alert, awake, oriented to person, oriented to place, oriented to time, oriented to situation, CN II-XII grossly intact. ABSENT: motor sensory deficit Psychiatric exam: PRESENT: anxious Skin exam: PRESENT: dry, warm, other - Flushed Results Laboratory Results: 11/16/19 15:20 11/16/19 15:20 11/16/19 11/16/19 11/16/19 15:20 15:20 15:20 WBC 9.5 RBC 5.16 Hgb 15.7 Hct 44.8 MCV 87 MCH 30.5 MCHC 35.2 RDW 13.9 Plt Count 268 Seg Neutrophils % 56.3 Sodium 140.2 Potassium 4.2 Chloride 105 Carbon Dioxide 26 Anion Gap 9 BUN 15 Creatinine 1.10 Est GFR ( Amer) > 60 Glucose 98 Calcium 9.7 Total Bilirubin 0.7 AST 29 Alkaline Phosphatase 100 Total Protein 8.2 Albumin 4.6 Urine Color YELLOW Urine Appearance CLEAR Urine pH 6.0 Ur Specific [place] 1.020 Urine Protein 30 H Urine Glucose (UA) NEGATIVE Urine Ketones NEGATIVE Urine Blood NEGATIVE Urine Nitrite NEGATIVE Ur Leukocyte Esterase NEGATIVE Urine WBC (Auto) 1 11/16/19 11/16/19 15:20 15:20 Creatine Kinase 165 Troponin I 0.013 Impressions: Chest X-Ray 11/16/19 14:53 IMPRESSION: No acute pulmonary findings. No identifiable displaced rib fracture. Head CT 11/16/19 14:53 IMPRESSION: NORMAL BRAIN CT WITHOUT CONTRAST. EVIDENCE OF ACUTE STROKE: NO. Assessment and Plan - Diagnosis (1) Hypertensive emergency Is this a current diagnosis for this admission?: Yes Plan: His blood pressure started going up after hydralazine, so I gave him a dose of IV labetalol and his blood pressure came down a bit but is still very high. For now we will use as needed hydralazine and labetalol. If needed we can use nitrates. Nitroglycerin drip can be done on the floor but if he needs anything beyond that he would have to go to the ICU. Said he took his blood pressure medications this morning. He said he normally takes them at night but he forgot to last night so he took them early this morning. He has been out of his aspirin for about a week. (2) Morbid obesity Is this a current diagnosis for this admission?: Yes Plan: We will strongly encourage lifestyle modification for improvement of his blood pressure and his other comorbidities (3) Syncope and collapse Is this a current diagnosis for this admission?: Yes Plan: Suspected at this time to be due to his hypertensive emergency. No neurological deficits at this time we are watching him very closely. Echocardiogram has been ordered. We will keep him on telemetry. Head CT was negative. (4) Uncontrolled hypertension Is this a current diagnosis for this admission?: Yes Plan: We will resume his home medications and see what his blood pressure does on them here. He will likely need further adjustment of his regimen. (5) Cardiomyopathy Qualifiers: Cardiomyopathy type: ischemic Qualified Code(s): I25.5 - Ischemic cardiomyopathy Is this a current diagnosis for this admission?: Yes Plan: He had a stress test done here a few years ago that showed an EF of 35% with a dilated cardiomyopathy. He said that he had a cardiac catheterization done at [facility] a couple years ago and was found to have coronary artery disease but he said no stents were placed. He normally follows with Dr. Gonzalez. We will continue his home medications. (6) Coronary artery disease Qualifiers: Coronary Disease-Associated Artery/Lesion type: [place] artery [place] vs. transplanted heart: [place] heart Associated angina: without angina Qualified Code(s): I25.10 - Atherosclerotic heart disease of [place] coronary artery without angina pectoris Is this a current diagnosis for this admission?: Yes Plan: We will continue his home medications (7) Hyperlipidemia Qualifiers: Hyperlipidemia type: other hyperlipidemia Qualified Code(s): E78.49 - Other hyperlipidemia; E78.4 - Other hyperlipidemia Is this a current diagnosis for this admission?: Yes Plan: We will continue his pravastatin - Time Time Spent with patient: 35 or more minutes - Inpatient Certification Based on my medical assessment, after consideration of the patient's comorbidities, presenting symptoms, or acuity I expect that the services needed warrant INPATIENT care.: Yes I certify that my determination is in accordance with my understanding of Medicare's requirements for reasonable and necessary INPATIENT services [42 CFR 412.3e].: Yes Medical Necessity: Significant Comorbidiites Make Outpatient Treatment Too Risky, Need Close Monitoring Due to Risk of Patient Decompensation, Need For Continuous Telemetry Monitoring, Need for Neurological Checks, Risk of Complication if Not Cared For in Hospital
[2019-11-16] MEDS: HYDRALAZINE HCL INJ/PF 20 MG/1 ML SDV IV PRN (20:26)
[2019-11-16] MEDS ORDERED: ACETAMINOPHEN 325 MG TABLET ONE (20:30)
[2019-11-16] MEDS: ACETAMINOPHEN 325 MG TABLET PO PRN (20:30)
--- NOTE | 2019-11-16 20:46 | EKG REPORT ---
SEVERITY:- BORDERLINE ECG - SINUS RHYTHM BORDERLINE PROLONGED QT INTERVAL : Confirmed by: Vince Brito 16-Nov-2019 20:46:06
[2019-11-17 06:47] LABS: HEMATOCRIT 43.5 % (37.9-51.0); HEMOGLOBIN 15.1 g/dL (13.5-17.0); MEAN CORPUSCULAR HEMOGLOBIN 30.3 pg (27.0-33.4); MEAN CORPUSCULAR HGB CONC 34.7 g/dL (32.0-36.0); MEAN CORPUSCULAR VOLUME 87 fl (80-97); PLATELET COUNT 245 10^3/uL (150-450); RED BLOOD COUNT 4.98 10^6/uL (4.35-5.55); WHITE BLOOD COUNT 8.2 10^3/uL (4.0-10.5)
[2019-11-17 07:22] LABS: ANION GAP 9 (5-19); BLOOD UREA NITROGEN 18 mg/dL (7-20); CALCIUM 9.7 mg/dL (8.4-10.2); CARBON DIOXIDE 23 mmol/L (22-30); CHLORIDE 108 mmol/L (98-107); GLUCOSE 111 mg/dL (75-110); POTASSIUM 4.5 mmol/L (3.6-5.0)
[2019-11-17] MEDS: HYDRALAZINE HCL INJ/PF 20 MG/1 ML SDV IV PRN (08:28)
[2019-11-17] MEDS: ACETAMINOPHEN 325 MG TABLET PO PRN (09:06)
[2019-11-17] MEDS ORDERED: CARVEDILOL 12.5 MG TABLET PO SCH (10:00)
[2019-11-17] MEDS: LOSARTAN POTASSIUM 50 MG TABLET PO SCH (10:04)
[2019-11-17] MEDS: HYDROCHLOROTHIAZIDE 25 MG TABLET PO SCH (10:05)
[2019-11-17] MEDS ORDERED: ALPRAZOLAM 0.5 MG TABLET PO PRN ×2 (10:13→17:31)
[2019-11-17] MEDS: SERTRALINE HCL 50 MG TABLET PO SCH (10:57)
--- NOTE | 2019-11-17 11:14 | EKG REPORT ---
SEVERITY:- BORDERLINE ECG - SINUS RHYTHM VENTRICULAR PREMATURE COMPLEX BORDERLINE T ABNORMALITIES, DIFFUSE LEADS : Confirmed by: Vince Brito 17-Nov-2019 11:14:22
--- NOTE | 2019-11-17 14:30 | PDOC PROGRESS REPORT ---
Subjective Progress Note for:: 11/17/19 Subjective:: No adverse events overnight. Every time we have to give him some medication for his blood pressure he says he always feels a little woozy for about a half an hour. I suspect his brain is used to a much higher blood pressure at baseline. He has had no focal neurological symptoms. Reason For Visit: HYPERTENSIVE EMERGENCY Physical Exam Vital Signs: Temp Pulse Resp BP Pulse Ox 97.8 F 92 19 133/70 H 96 11/17/19 12:24 11/17/19 12:24 11/17/19 12:24 11/17/19 12:24 11/17/19 12:24 Intake & Output 11/16/19 11/17/19 11/18/19 06:59 06:59 06:59 Intake Total 300 120 Output Total 225 Balance 300 -105 Weight 121.4 kg General appearance: PRESENT: no acute distress, cooperative, morbidly obese Respiratory exam: PRESENT: clear to auscultation jabari, symmetrical, unlabored. ABSENT: accessory muscle use, chest wall tenderness, prolonged expiratory phas, rhonchi, tachypnea, wheezes Cardiovascular exam: PRESENT: RRR, +S1, +S2 Pulses: PRESENT: normal carotid pulses Vascular exam: PRESENT: normal capillary refill GI/Abdominal exam: PRESENT: normal bowel sounds, soft. ABSENT: distended, guarding, rebound, tenderness Extremities exam: PRESENT: pedal edema. ABSENT: clubbing Musculoskeletal exam: PRESENT: normal inspection Neurological exam: PRESENT: alert, awake, oriented to person, oriented to place, oriented to time, oriented to situation, CN II-XII grossly intact. ABSENT: motor sensory deficit Psychiatric exam: PRESENT: anxious Skin exam: PRESENT: dry, warm Results Laboratory Results: 11/17/19 05:59 11/17/19 05:59 11/16/19 11/16/19 11/16/19 15:20 15:20 15:20 WBC 9.5 RBC 5.16 Hgb 15.7 Hct 44.8 MCV 87 MCH 30.5 MCHC 35.2 RDW 13.9 Plt Count 268 Seg Neutrophils % 56.3 Sodium 140.2 Potassium 4.2 Chloride 105 Carbon Dioxide 26 Anion Gap 9 BUN 15 Creatinine 1.10 Est GFR ( Amer) > 60 Glucose 98 Calcium 9.7 Total Bilirubin 0.7 AST 29 Alkaline Phosphatase 100 Total Protein 8.2 Albumin 4.6 TSH Urine Color YELLOW Urine Appearance CLEAR Urine pH 6.0 Ur Specific [place] 1.020 Urine Protein 30 H Urine Glucose (UA) NEGATIVE Urine Ketones NEGATIVE Urine Blood NEGATIVE Urine Nitrite NEGATIVE Ur Leukocyte Esterase NEGATIVE Urine WBC (Auto) 1 11/17/19 11/17/19 11/17/19 05:59 05:59 05:59 WBC 8.2 RBC 4.98 Hgb 15.1 Hct 43.5 MCV 87 MCH 30.3 MCHC 34.7 RDW 14.0 Plt Count 245 Seg Neutrophils % Sodium 139.7 Potassium 4.5 Chloride 108 H Carbon Dioxide 23 Anion Gap 9 BUN 18 Creatinine 0.98 Est GFR ( Amer) > 60 Glucose 111 H Calcium 9.7 Total Bilirubin AST Alkaline Phosphatase Total Protein Albumin TSH 1.14 Urine Color Urine Appearance Urine pH Ur Specific [place] Urine Protein Urine Glucose (UA) Urine Ketones Urine Blood Urine Nitrite Ur Leukocyte Esterase Urine WBC (Auto) 11/16/19 11/16/19 11/17/19 15:20 15:20 05:59 Creatine Kinase 165 Troponin I 0.013 0.016 Impressions: Chest X-Ray 11/16/19 14:53 IMPRESSION: No acute pulmonary findings. No identifiable displaced rib fracture. Head CT 11/16/19 14:53 IMPRESSION: NORMAL BRAIN CT WITHOUT CONTRAST. EVIDENCE OF ACUTE STROKE: NO. Assessment and Plan - Diagnosis (1) Hypertensive emergency Is this a current diagnosis for this admission?: Yes Plan: We got his home medicines reordered. We started him back on them this morning. His blood pressures have done much better since then. We still have PRN medicines available. (2) Morbid obesity Is this a current diagnosis for this admission?: Yes Plan: We will strongly encourage lifestyle modification for improvement of his blood pressure and his other comorbidities (3) Syncope and collapse Is this a current diagnosis for this admission?: Yes Plan: He has had no further syncopal events. I suspect that all of this had to do with large fluctuations in his blood pressure temporarily. We got him back on the aspirin he was supposed to be on prior to admission. Echocardiogram is pending. No events on telemetry. (4) Uncontrolled hypertension Is this a current diagnosis for this admission?: Yes Plan: His blood pressure seems to be doing much better now that we got him back on his home medications. Right now which is giving him the medicines he is on at home that were verified by the pharmacy. So far we have pretty good control with this approach. (5) Cardiomyopathy Qualifiers: Cardiomyopathy type: ischemic Qualified Code(s): I25.5 - Ischemic cardiomyopathy Is this a current diagnosis for this admission?: Yes Plan: He had a stress test done here a few years ago that showed an EF of 35% with a dilated cardiomyopathy. He said that he had a cardiac catheterization done at [facility] a couple years ago and was found to have coronary artery disease but he said no stents were placed. He normally follows with Dr. Gonzalez. We continue his home medications. Echocardiogram is pending. (6) Coronary artery disease Qualifiers: Coronary Disease-Associated Artery/Lesion type: [place] artery [place] vs. transplanted heart: [place] heart Associated angina: without angina Qualified Code(s): I25.10 - Atherosclerotic heart disease of [place] coronary artery without angina pectoris Is this a current diagnosis for this admission?: Yes Plan: We will continue his home medications (7) Hyperlipidemia Qualifiers: Hyperlipidemia type: other hyperlipidemia Qualified Code(s): E78.49 - Other hyperlipidemia; E78.4 - Other hyperlipidemia Is this a current diagnosis for this admission?: Yes Plan: We will continue his pravastatin (8) Anxiety Is this a current diagnosis for this admission?: Yes Plan: He has a fairly anxious disposition. He was on Zoloft at home, along with Xanax . Those have been reordered. - Time Time Spent with patient: 25-34 minutes
[2019-11-17] MEDS: GABAPENTIN 300 MG CAPSULE PO SCH ×2 (15:13→22:45)
[2019-11-17] MEDS: TOPIRAMATE 100 MG TABLET PO SCH (17:10)
[2019-11-17] MEDS ORDERED: AMLODIPINE BESYLATE 10 MG TABLET PO SCH (22:00)
[2019-11-17] MEDS ORDERED: (PENDING PHARMACY ID) (Carvedilol [Carvedilol] 25 MG) PO SCH (22:00)
[2019-11-17] MEDS: CARVEDILOL 12.5 MG TABLET PO SCH (22:44)
[2019-11-18] MEDS: GABAPENTIN 300 MG CAPSULE PO SCH ×2 (06:04→15:25)
[2019-11-18] MEDS: TOPIRAMATE 100 MG TABLET PO SCH ×2 (06:04→17:29)
[2019-11-18 06:25] LABS: HEMATOCRIT 43.1 % (37.9-51.0); HEMOGLOBIN 14.9 g/dL (13.5-17.0); MEAN CORPUSCULAR HEMOGLOBIN 30.2 pg (27.0-33.4); MEAN CORPUSCULAR HGB CONC 34.6 g/dL (32.0-36.0); MEAN CORPUSCULAR VOLUME 87 fl (80-97); PLATELET COUNT 238 10^3/uL (150-450); RED BLOOD COUNT 4.93 10^6/uL (4.35-5.55); RED CELL DISTRIBUTION WIDTH 14.1 % (11.5-14.0); WHITE BLOOD COUNT 8.7 10^3/uL (4.0-10.5)
[2019-11-18 06:53] LABS: ANION GAP 8 (5-19); BLOOD UREA NITROGEN 21 mg/dL (7-20); CALCIUM 9.4 mg/dL (8.4-10.2); CARBON DIOXIDE 23 mmol/L (22-30); CHLORIDE 108 mmol/L (98-107); GLUCOSE 105 mg/dL (75-110); POTASSIUM 4.3 mmol/L (3.6-5.0)
[2019-11-18] MEDS: CARVEDILOL 12.5 MG TABLET PO SCH (10:00)
[2019-11-18] MEDS: SERTRALINE HCL 50 MG TABLET PO SCH (10:01)
[2019-11-18] MEDS: HYDROCHLOROTHIAZIDE 25 MG TABLET PO SCH (10:02)
[2019-11-18] MEDS: LOSARTAN POTASSIUM 50 MG TABLET PO SCH (10:02)
--- NOTE | 2019-11-18 14:06 | XCELERA REPORT ---
[address] [address] Transthoracic Echocardiogram Report Name: ERNESTINA ROMO Age: 54 yrs Gender: Male : 1965 Patient Status: Inpatient Patient Location: [address] [place] [address] Study Date: 11/18/2019 10:22 AM Height: 70 in Weight: 265 lb BSA: 2.4 m2 Procedure: A complete two-dimensional transthoracic echocardiogram was performed (2D, M-mode, spectral and color flow Doppler). The study was technically adequate with some images being suboptimal in quality. Reason For Study: syncope Ordering Physician: SERJIO COCHRAN Performed By: Marcella Alvarado Interpretation Summary The left ventricle is grossly normal size. There is mild concentric left ventricular hypertrophy. The left ventricular ejection fraction is normal. The Ejection Fraction estimate is 65-70%. Doppler measurements suggest impaired left ventricular relaxation, which is associated with grade I/IV or mild diastolic dysfunction. No obvious wall motion abnormalities. Trace PI No prior studies for comparison. MMode/2D Measurements & Calculations RVDd: 4.2 cm LVIDd: 4.8 cm FS: 29.4 % Ao root diam: 3.5 cm IVSd: 1.6 cm LVIDs: 3.4 cm EDV(Teich): 107.6 ml Ao root area: 9.4 cm2 LVPWd: 1.6 cm ESV(Teich): 47.2 ml EF(Teich): 56.2 % Doppler Measurements & Calculations MV E max chano: MV dec slope: Ao V2 max: LV V1 max P.6 cm/sec 269.8 cm/sec2 122.3 cm/sec 5.2 mmHg MV A max chano: MV dec time: 0.25 secAo max PG: LV V1 max: 77.3 cm/sec 6.0 mmHg 114.2 cm/sec MV E/A: 0.87 PA V2 max: PI end-d chano: 107.2 cm/sec 112.5 cm/sec PA max P.6 mmHg Left Ventricle The left ventricle is grossly normal size. There is mild concentric left ventricular hypertrophy. The left ventricular ejection fraction is normal. The Ejection Fraction estimate is 65-70%. Doppler measurements suggest impaired left ventricular relaxation, which is associated with grade I/IV or mild diastolic dysfunction. No obvious wall motion abnormalities. Right Ventricle The right ventricle is grossly normal size. The right ventricular systolic function is normal. Atria The right atrium is normal. The left atrial size is normal. There is no Doppler evidence for an interatrial shunt. Mitral Valve The mitral valve is normal in structure and function. There is no evidence of mitral valve prolapse. There is no mitral valve stenosis. There is no mitral regurgitation noted. Aortic Valve The aortic valve is normal in structure and functions normally. There is no aortic valve stenosis. No aortic regurgitation is present. Tricuspid Valve The tricuspid valve is not well visualized, but is grossly normal. Can not completely rule out TR but no significant TR noted. Pulmonic Valve The pulmonic valve is normal in structure and function. There is a trace or physiologic amount of pulmonic regurgitation. Great Vessels The inferior vena cava appeared normal and decreased > 50% with respiration (RAP 5-10 mmHg). Effusions There is no pericardial effusion. : SERJIO COCHRAN Antonio
--- NOTE | 2019-11-18 17:04 | PDOC DISCHARGE SUMMARY ---
Impression - Admit/DC Date/PCP Admission Date/Primary Care Provider: 11/16/19 19:06 JOSE SCHROEDER PA-C Discharge Date: 11/18/19 - Discharge Diagnosis (1) Hypertensive emergency Is this a current diagnosis for this admission?: Yes (2) Morbid obesity Is this a current diagnosis for this admission?: Yes (3) Syncope and collapse Is this a current diagnosis for this admission?: Yes (4) Uncontrolled hypertension Is this a current diagnosis for this admission?: Yes (5) Cardiomyopathy Is this a current diagnosis for this admission?: Yes (6) Coronary artery disease Is this a current diagnosis for this admission?: Yes (7) Hyperlipidemia Is this a current diagnosis for this admission?: Yes (8) Anxiety Is this a current diagnosis for this admission?: Yes - Additional Information Resuscitation Status: Full Code Discharge Diet: Cardiac, Diabetic Discharge Activity: Activity As Tolerated Referrals: JOSE SCHROEDER PA-C [Primary Care Provider] - Follow up as needed Prescriptions: Nitroglycerin 0.4 mg SL Q5MP PRN #30 tab.subl PRN Reason: Home Medications: Hydrochlorothiazide 25 mg PO DAILY 10/12/15 Losartan Potassium 100 mg PO DAILY 10/12/15 Pravastatin Sodium [Pravachol] 80 tab PO QHS 10/12/15 Carvedilol 25 mg PO Q12 11/17/19 Gabapentin [Neurontin 300 mg Capsule] 300 mg PO Q8 11/17/19 Metformin HCl [Metformin HCl ER] 1,000 mg PO QPM 11/17/19 Sertraline HCl [Zoloft 50 mg Tablet] 200 mg PO DAILY 11/17/19 Topiramate [Topamax 100 mg Tablet] 200 mg PO BID 11/17/19 Amlodipine Besylate [Norvasc 10 mg Tablet] 10 mg PO QHS tablet 11/18/19 Nitroglycerin 0.4 mg SL Q5MP PRN #30 tab.subl 11/18/19 History of Present Illiness History of Present Illness: ERNESTINA ROMO is a 54 year old male with a history of hypertension, hyperlipidemia, cardiomyopathy with reduced ejection fraction, and "borderline diabetes" who presents today after an episode that happened to him while he was at home. He was at home working on his cars air-conditioner, got up from a kneeling position and walked into his garage to get some water, came back and then knelt down to hop picker the tolls from the floor board of the passenger side of the car, and while he had knelt down to do that he says he passed out. He fell backwards and his dog was licking him in the face and he still had the tools in his hand. He called his daughter and she came over to see him. He was brought into the emergency department where his labs and EKG are normal, but he is got substantially elevated blood pressure. He said he does not know if he hit his head, but he said he is not "felt right" since he passed out. His head CT was unremarkable. He got a dose of hydralazine in the ER and his blood pressure continued to go up. Hospital Course Hospital Course: His blood pressure came down with PRN medication, and once we got him back on his home medications his blood pressure actually did really well. We had an echocardiogram that showed an EF of 65 to 70% grade 1 diastolic dysfunction, no evidence of elevated right ventricular systolic pressure. He is an extremely anxious person and we got him back on his home medications. His anxiety probably has a lot to do with his blood pressure going up. We fortunately did not have to make any changes to his home regimen. He is going to follow-up with cardiology in a week. His labs and examination were reassuring and he was discharged in stable condition. Physical Exam Vital Signs: Temp Pulse Resp BP Pulse Ox 97.6 F 64 20 133/87 H 98 11/18/19 15:41 11/18/19 15:41 11/18/19 15:41 11/18/19 15:41 11/18/19 15:41 Intake & Output 11/17/19 11/18/19 11/19/19 06:59 06:59 06:59 Intake Total 300 810 240 Output Total 825 375 Balance 300 -15 -135 Weight 121.4 kg 120.8 kg General appearance: PRESENT: no acute distress, cooperative, morbidly obese Respiratory exam: PRESENT: clear to auscultation jabari, symmetrical, unlabored. ABSENT: accessory muscle use, chest wall tenderness, prolonged expiratory phas, rhonchi, tachypnea, wheezes Cardiovascular exam: PRESENT: RRR, +S1, +S2 Pulses: PRESENT: normal carotid pulses Vascular exam: PRESENT: normal capillary refill GI/Abdominal exam: PRESENT: normal bowel sounds, soft. ABSENT: distended, guarding, rebound, tenderness Extremities exam: PRESENT: pedal edema. ABSENT: clubbing Musculoskeletal exam: PRESENT: normal inspection Neurological exam: PRESENT: alert, awake, oriented to person, oriented to place, oriented to time, oriented to situation, CN II-XII grossly intact. ABSENT: motor sensory deficit Psychiatric exam: PRESENT: anxious Skin exam: PRESENT: dry, warm Results Laboratory Results: WBC 8.7 10^3/uL (4.0-10.5) 11/18/19 06:03 RBC 4.93 10^6/uL (4.35-5.55) 11/18/19 06:03 Hgb 14.9 g/dL (13.5-17.0) 11/18/19 06:03 Hct 43.1 % (37.9-51.0) 11/18/19 06:03 MCV 87 fl (80-97) 11/18/19 06:03 MCH 30.2 pg (27.0-33.4) 11/18/19 06:03 MCHC 34.6 g/dL (32.0-36.0) 11/18/19 06:03 RDW 14.1 % (11.5-14.0) H 11/18/19 06:03 Plt Count 238 10^3/uL (150-450) 11/18/19 06:03 Lymph % (Auto) 28.1 % (13-45) 11/16/19 15:20 [place] % (Auto) 11.3 % (3-13) 11/16/19 15:20 Eos % (Auto) 3.4 % (0-6) 11/16/19 15:20 Baso % (Auto) 0.9 % (0-2) 11/16/19 15:20 Absolute Neuts (auto) 5.3 10^3/uL (1.7-8.2) 11/16/19 15:20 Absolute Lymphs (auto) 2.7 10^3/uL (0.5-4.7) 11/16/19 15:20 Absolute Monos (auto) 1.1 10^3/uL (0.1-1.4) 11/16/19 15:20 Absolute Eos (auto) 0.3 10^3/uL (0.0-0.6) 11/16/19 15:20 Absolute Basos (auto) 0.1 10^3/uL (0.0-0.2) 11/16/19 15:20 Seg Neutrophils % 56.3 % (42-78) 11/16/19 15:20 Sodium 138.9 mmol/L (137-145) 11/18/19 06:03 Potassium 4.3 mmol/L (3.6-5.0) 11/18/19 06:03 Chloride 108 mmol/L (98-107) H 11/18/19 06:03 Carbon Dioxide 23 mmol/L (22-30) 11/18/19 06:03 Anion Gap 8 (5-19) 11/18/19 06:03 BUN 21 mg/dL (7-20) H 11/18/19 06:03 Creatinine 1.08 mg/dL (0.52-1.25) 11/18/19 06:03 Est GFR ( Amer) > 60 (>60) 11/18/19 06:03 Est GFR (MDRD) Non-Af > 60 (>60) 11/18/19 06:03 Glucose 105 mg/dL (75-110) 11/18/19 06:03 Calcium 9.4 mg/dL (8.4-10.2) 11/18/19 06:03 Total Bilirubin 0.7 mg/dL (0.2-1.3) 11/16/19 15:20 Direct Bilirubin 0.0 mg/dL (0.0-0.4) 11/16/19 15:20 Neonat Total Bilirubin Not Reportable 11/16/19 15:20 Neonat Direct Bilirubin Not Reportable 11/16/19 15:20 Neonat Indirect Bili Not Reportable 11/16/19 15:20 AST 29 U/L (17-59) 11/16/19 15:20 ALT 40 U/L (<50) 11/16/19 15:20 Alkaline Phosphatase 100 U/L (38-126) 11/16/19 15:20 Creatine Kinase 165 U/L (55-170) 11/16/19 15:20 Troponin I 0.016 ng/mL 11/17/19 05:59 Total Protein 8.2 g/dL (6.3-8.2) 11/16/19 15:20 Albumin 4.6 g/dL (3.5-5.0) 11/16/19 15:20 TSH 1.14 uIU/mL (0.47-4.68) 11/17/19 05:59 Urine Color YELLOW 11/16/19 15:20 Urine Appearance CLEAR 11/16/19 15:20 Urine pH 6.0 (5.0-9.0) 11/16/19 15:20 Ur Specific [place] 1.020 11/16/19 15:20 Urine Protein 30 mg/dL (NEGATIVE) H 11/16/19 15:20 Urine Glucose (UA) NEGATIVE mg/dL (NEGATIVE) 11/16/19 15:20 Urine Ketones NEGATIVE mg/dL (NEGATIVE) 11/16/19 15:20 Urine Blood NEGATIVE (NEGATIVE) 11/16/19 15:20 Urine Nitrite NEGATIVE (NEGATIVE) 11/16/19 15:20 Urine Bilirubin NEGATIVE (NEGATIVE) 11/16/19 15:20 Urine Urobilinogen NEGATIVE mg/dL (<2.0) 11/16/19 15:20 Ur Leukocyte Esterase NEGATIVE (NEGATIVE) 11/16/19 15:20 Urine WBC (Auto) 1 /HPF 11/16/19 15:20 Urine Bacteria (Auto) TRACE /HPF 11/16/19 15:20 Urine Mucus (Auto) RARE /LPF 11/16/19 15:20 Urine Ascorbic Acid 40 (NEGATIVE) H 11/16/19 15:20 11/16/19 11/17/19 15:20 05:59 Troponin I 0.013 0.016 Impressions: Chest X-Ray 11/16/19 14:53 IMPRESSION: No acute pulmonary findings. No identifiable displaced rib fracture. Head CT 11/16/19 14:53 IMPRESSION: NORMAL BRAIN CT WITHOUT CONTRAST. EVIDENCE OF ACUTE STROKE: NO. Plan Time Spent: Greater than 30 Minutes Stroke Is this a Stroke Patient?: No Acute Heart Failure - Is this a Heart Failure Patient?: No
[2019-11-18 17:37] VITALS: BP 137/86
== END 2019-11-18 18:10 | disposition home or self-care (01) | DRG 305 ==
LOC: ER 14:36 → EH 19:06 → 3S 20:12
PROVIDERS: ADMIT Family Medicine; ATTEND Family Medicine
DX: I16.1 Hypertensive emergency (principal); I25.5 Ischemic cardiomyopathy; I10 Essential (primary) hypertension; K21.9 Gastro-esophageal reflux disease without esophagitis; E78.5 Hyperlipidemia, unspecified; R73.03 Prediabetes; R55 Syncope and collapse; E66.01 Morbid (severe) obesity due to excess calories; F41.9 Anxiety disorder, unspecified; T46.5X6A Underdosing of other antihypertensive drugs, initial encounter; I25.2 Old myocardial infarction; Z79.899 Other long term (current) drug therapy; Z91.128 Patient's intentional underdosing of medication regimen for other reason; Y92.009 Unspecified place in unspecified non-institutional (private) residence as the place of occurrence of the external cause
CPT/HCPCS: 36415; 70450; 71045; 80048; 80053; 81001; 82550; 84443; 84484; 85025; 85027; 93005; 93010; 93306; 96374; 96375; 99285; J0360; J2060; J3490